=== PATIENT | female | born 1955 | race Caucasian/White ===

== ENCOUNTER 2019-01-08 10:36 | Inpatient (IN) | payer MEDICARE, MEDICAID ==
--- NOTE | 2018-12-26 14:46 | HP ---
PREOPERATIVE HISTORY AND PHYSICAL: DATE OF ADMISSION: 01/08/19 DATE OF OFFICE VISIT: 12/26/18 ATTENDING PHYSICIAN: Dr. Oriana Ivan.* (DICTATED BY TABITHA RAZO) PROCEDURE SCHEDULED: Left total hip arthroplasty. CHIEF COMPLAINT: Left hip pain. HISTORY OF PRESENT ILLNESS: Ms. Sepulveda is a 63-year-old female with over 2 years of increasingly severe left hip pain. She has pain in the left groin and has difficulty ambulating more than 1 block. She has pain with prolonged standing and uses a cane and rolling walker. She has tried anti-inflammatories , pain medications, and intraarticular hip injection without significant relief of her symptoms. She now elects to proceed with left total hip arthroplasty. PAST MEDICAL HISTORY: Significant for sleep apnea, hypertension, asthma, depression. She is oxygen dependent at night 2.5 L. PAST SURGICAL HISTORY: Appendectomy, tubal ligation, surgery for ovarian torsion. CURRENT MEDICATIONS: 1. Gabapentin 300 mg 1 p.o. 3 times daily. 2. Citalopram hydrobromide 20 mg p.o. twice daily. 3. Bupropion HCl 75 mg p.o. daily. 4. Metoprolol ER 50 mg p.o. daily. 5. Loratadine 10 mg p.o. daily. 6. Albuterol 2 puffs as needed for shortness of breath. 7. 81 mg aspirin p.o. daily. 8. Calcium with vitamin D 600/200 mg 1 p.o. b.i.d. 9. Cyclobenzaprine 10 mg p.o. t.i.d. as needed. 10. Multivitamin. 11. Nasal cannula O2 at 2.5 L at night. ALLERGIES: PENICILLIN, which caused swelling; MORPHINE, hives. FAMILY HISTORY: Father with a history of diabetes, stroke, and skin cancer as well as hypertension. Mother with a history of stroke. SOCIAL HISTORY: She is currently disabled. She quit smoking 3 years ago. She does not use alcohol. She denies use of illicit drugs. REVIEW OF SYSTEMS: The patient occasionally has shortness of breath on exertion and has had some issues with urinary leakage. She denies recent loss of consciousness, lightheadedness, dizziness, chest pain, palpitations, gastrointestinal or neurologic disorder. PHYSICAL EXAMINATION GENERAL: Well-developed, well-nourished 63-year-old female in no acute distress , alert and oriented x3, pleasant and cooperative. VITAL SIGNS: Height 5 feet 1 inch tall, weight 212 pounds. Pulse 72, respirations 12, BP 146/80. HEENT: PERRLA. EOMI. LUNGS: Clear to auscultation. No wheezes, rales, or rhonchi. HEART: Regular rate and rhythm. No murmur auscultated. ABDOMEN: Obese, soft, nontender, nondistended. Normoactive bowel sounds x4. MUSCULOSKELETAL: Left lower extremity: Her skin is intact. No abrasions or open lesions. 0 to 85 degrees of flexion with groin pain, 0 internal rotation, 20 degrees of external rotation with groin pain. She has active dorsiflexion of the left ankle. Her sensation and circulation are intact distally. DIAGNOSTIC STUDIES: Plain films of her left hip reveal medial [id number] contact with joint space narrowing and osteophyte formation. IMPRESSION: Advanced osteoarthritis of the left hip. PLAN: The patient has elected to proceed with left total hip arthroplasty scheduled with Dr. Ivan on 01/08/19. She is scheduled to report to the hospital today for preoperative testing. Risks and benefits of the procedure were fully discussed by Dr. Ivan at her office visit today, 12/26/18, and she elects to proceed. She will follow up postoperatively in roughly 10 to 14 days. TABITHA RAZO [id number]/[facility] #: [id number] MOY
[~2019-01-08 10:36] MED LIST: Acetaminophen IV 1GM/100ML * 1,000 MG/100 ML VIAL IVPB ONE; Dexamethasone IV* 4 MG/ML 1 ML (4 MG) IV SLOW PU ONE; Famotidine IV* 10 MG/ML 2 ML (20 mg) IV ONE; Gabapentin CAP(*) 300 MG PO ONE; Lactated Ringers 1000 ML Bag* 1,000 ML IV SCH; Levalbuterol 0.63MG/3ML NEB* UNIT OF USE INH ONE; Tranexamic Acid 1,000 MG in NS 0.9% 50 ML* (outpatient use) IV SCH; celeCOXIB CAP* 200 MG PO ONE
--- OUTSIDE RECORDS SUMMARY | 2019-01-08 10:39 | XMS REPORT | Continuity of Care Document ---
:1955 External Reference #:[id number] Author Name Oriana Ivan M.D. 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 Onset: 12/2018 region and thigh Sleep apnea Oriana Ivan M.D. Onset: 12/26/2018 Social History Type Date Description Comments Sex Unknown ETOH Use Denies alcohol use Tobacco Use Start: Unknown End: Patient is a former smoker Unknown Smoking Status Reviewed: 12/26/18 Patient is a former smoker Exercise Type/Frequency Does not exercise Allergies, Adverse Reactions, Alerts Active Allergies Reaction Severity Comments Date Penicillin 11/12/2018 Morphine 12/26/2018 Medications Active Medications SIG Qnty Indications Ordering Provider Date Gabapentin Take 1 Capsule Unknown 300mg Capsules By Mouth Three Times Daily Citalopram Hydrobromide Take 1 Tablet By Unknown 20mg Mouth twice Tablets Daily Bupropion HCL every day Anna, 75mg Tablets MD Trinh Metoprolol Succinate ER Galyanyasmany, 50mg MD Trinh Tablets ER 24HR Loratadine once daily Unknown 10mg Tablets Albuterol Sulfate 2 puffs every 4 Unknown hours as needed Aspirin 81 Low Dose 1 by mouth every Unknown 81mg day Chewtabs Calcium + D3 1 by mouth twice Unknown [id number] every day Tablets Cyclobenzaprine HCL take 1 tab by Unknown 10mg mouth 3 times a Tablets day as needed Multivitamin Adult Unknown Oxygen Unknown Immunizations Description No Information Available Vital Signs Date Vital Result Comment 12/26/2018 8:42am Height 61.5 inches 5'1.50" Weight 212.75 lb Heart Rate 72 /min BP Systolic 146 mmHg BP Diastolic 80 mmHg Respiratory Rate 12 /min Pain Level 7 BMI (Body Mass Index) 39.5 kg/m2 11/12/2018 10:41am Height 61.5 inches 5'1.50" Weight 211.00 lb BP Systolic 146 mmHg BP Diastolic 90 mmHg Body Temperature 97.7 F BMI (Body Mass Index) 39.2 kg/m2 Results Description No Information Available Procedures Description No Information Available Medical Devices Description No Information Available Encounters Type Date Location Provider Dx Diagnosis Office Visit 11/12/2018 [facility] Ori[facility] Ivan, M25.552 Pain in left hip 10:[facility] M16.12 Unilateral primary osteoarthritis, left hip Assessments Date Code Description Provider 12/26/2018 Carlo5.552 Pain in left hip Oriana Ivan M.D. 12/26/2018 M16.12 Unilateral primary osteoarthritis, left hip Oriana Ivan M.D. 11/12/2018 M25.552 Pain in left hip Oriana Ivan M.D. 11/12/2018 M16.12 Unilateral primary osteoarthritis, left hip Oriana Ivan M.D. Plan of Treatment Future Appointment(s):01/21/2019 1:45 pm - Oriana Ivan M.D. at [facility].[place]01/08/2019 3:45 pm - [facility]/26/2018 - Oriana Ivan M.D.M25.552 Pain in left hipFollow up:Follow up: 10-14 days post opM16.12 Unilateral primary osteoarthritis, left hip Functional Status Description No Information Available Mental Status Description No Information Available Referrals Description No Information Available
--- OUTSIDE RECORDS SUMMARY | 2019-01-08 10:39 | XMS REPORT | Summary of Care ---
:1955 Author Organization [facility] Address [address] [place] [address] Care Team Providers Name Role Phone Trinh Castillo MD Primary Care Provider Reason for Visit Reason Comments Surgery Approval LT hip replacement total, Dr ivan on 01/08/19 Encounter Details Date Type Department Care Team Description 12/19/2018 Office Visit [facility], Pre-op exam (Primary Practice MD Trinh Dx) [address] [place] [address] [place] [address] [phone] Allergies Active Allergy Reactions Severity Noted Date Comments Dilaudid (No Cough) Respiratory Reaction, GI Reaction 08/01/2011 Doxycycline Hyclate Respiratory Reaction, Swelling 08/18/2011 Penicillin G Potassium 06/08/2007 documented as of this encounter (statuses as of 12/19/2018) Medications Medication Sig Dispensed Refills Start Date End Date Status Aspirin 81 MG Oral Take 81 mg by 0 Active Tab mouth DAILY. albuterol HFA Take 2 Puffs by 3 Inhaler 1 09/05/2012 Active (VENTOLIN HFA) 108 inhalation (90 BASE) MCG/ACT EVERY FOUR Inhalation Aero Soln HOURS NEEDED (wheezing). Multiple TAKE ONE TABLET 90 Tab 1 12/23/2016 Active Vitamins-Iron BY MOUTH ONCE (DAILY-JASON/IRON/BET DAILY A-CAROTENE) Oral Tab buPROPion TAKE 1 TABLET 180 Tab 1 09/18/2018 Active (WELLBUTRIN) 75 MG BY MOUTH TWICE Oral Tab DAILY gabapentin TAKE 1 CAPSULE 270 Cap 1 09/18/2018 Active (NEURONTIN) 300 MG BY MOUTH THREE Oral Cap TIMES DAILY metoprolol succinate Take 1 Tab by 90 Tab 1 09/18/2018 Active (TOPROL XL) 50 MG mouth DAILY. Oral TABLET SR 24 HR Calcium Take 1 Tab by 180 Tab 1 09/18/2018 Active Carb-Cholecalciferol mouth TWICE (CALCIUM + D3) DAILY. 600-200 MG-UNIT Oral Tab cyclobenzaprine Take 1 Tab by 90 Tab 3 09/24/2018 Active (FLEXERIL) 10 MG mouth THREE Oral Tab TIMES DAILY NEEDED (muscle spasm). citalopram (CELEXA) TAKE 1 TABLET 90 Tab 1 10/17/2018 Active 20 MG Oral BY MOUTH ONCE TabIndications: DAILY Other depression loratadine (EQ Take 1 Tab by 90 Tab 1 12/18/2018 Active LORATADINE) 10 MG mouth DAILY. Oral Tab Oxycodone HCl 10 MG Take 1 Tab by 90 Tab 0 03/12/2018 Discontinued Oral TabIndications: mouth EVERY 9 Other chronic pain EIGHT HOURS NEEDED (pain). Max Daily Amount: 30 mg. 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 02/03/2016 Smoking 09/23/2014 BMI 33.0-33.9,adult 06/27/2013 COPD (chronic obstructive pulmonary disease) 10/13/2011 Overview: Oxygen 2L @ [facility] Depression 06/27/2011 Sciatica 03/14/2007 Low Back Pain 03/14/2007 Overview: narcotic dependent, disabled, WC Asthma 03/14/2007 Overview: smoker HTN (hypertension) Hyperlipidemia documented as of this encounter (statuses as of 12/19/2018) Resolved Problems Problem Noted Date Resolved Date Urethral caruncle 11/29/2013 2013 Smoking addiction 10/13/2011 01/18/2012 documented as of this encounter (statuses as of 12/19/2018) Immunizations Name Administration Dates Next Due Adacel TdaP 10/05/2006 Depo Medrol (40mg) 10/29/2009, 06/25/2009 Influenza (IM) Preservative Free 01/26/2018, 01/24/2017, 04/10/2014, 01/31/2013, 02/01/2012, 02/16/2011, 02/03/2010 Influenza (IM) W/Pres 01/26/2015 Influenza Vaccine Whole 03/04/2009, 02/18/2008, 03/14/2007, 02/22/2006, 02/13/2002 PNEUMOCOCCAL POLYSACCHARIDE VACCINE 07/30/2007 TDAP Vaccine 11/07/2017 dT Vaccine 05/08/1998 documented as of this encounter Social History Tobacco Use Types Packs/Day Years Used Date Former Smoker Cigarettes 0.5 30 Quit: 05/01/2016 Smokeless Tobacco: Never Used Alcohol Use Drinks/Week oz/Week Comments No 0 Standard drinks or equivalent 0.0 Sex Assigned at Date Recorded Not on file Job Start Date Occupation Industry Not on file Not on file Not on file Travel History Travel Start Travel End No recent travel history available. documented as of this encounter Last Filed Vital Signs Vital Sign Reading Time Taken Comments Blood Pressure 140/90 12/19/2018 2:28 PM EDT Pulse 82 12/19/2018 2:28 PM EDT Temperature 37 12/19/2018 2:28 PM EDT C (98.6 F) Respiratory Rate - - Oxygen Saturation 96% 12/19/2018 2:28 PM EDT Inhaled Oxygen Concentration - - Weight 95.9 kg (211 lb 8 oz) 12/19/2018 2:28 PM EDT Height 155.6 cm (5' 1.25") 12/19/2018 2:28 PM EDT Body Mass Index 39.64 12/19/2018 2:28 PM EDT documented in this encounter Progress Notes Trinh Castillo MD - 12/19/2018 2:20 PM EDT PATIENT: Nica Sepulveda : 1955 DATE OF SERVICE: 12/19/2018 Subjective SUBJECTIVE: Nica Sepulveda is a 62-y.o. female who presents to the office today for a preoperative consultation at the request of Dr. Ivan, who will perform a L Total hip replacement on 01/08/19. Patient complains of cardiac symptoms: none. Patient denies cardiac symptoms: chest pain, chest pressure/discomfort, dyspnea , palpitations, irregular heart beats, near-syncope. Past history of pulmonary embolism/deep vein thrombosis: no. There is a history of bleeding complications: no Past history of anesthetic problem: no. Exercise capacity: Can you walk 2 blocks on level ground, or carry 2 bags of groceries up 2 flights of stairs? No because of back and leg pain Count the number of risk factors in the revised Porter cardiac risk index. ( RCRI): High risk procedure: eg vascular surgery, any open intraperitoneal or intrathoracic History of ischemic heart disease (history of VT or a positive exercise test, current complaint of chest pain considered to be secondary to myocardial ischemia, use of nitrate therapy, or ECG with pathological Q waves; do not count prior coronary revascularization procedure unless one of the other criteria for ischemic heart disease is present) Hx of CHF, either systolic or diastolic History of cerebrovascular disease (TIA or Stroke) Diabetes mellitus requiring treatment with insulin Preoperative serum creatinine >2.0 mg/dl The risk of cardiac , nonfatal myocardial infarction, and nonfatal cardiac arrest according to the number of above risk predictors is estimated to be: No risk factors - 0.4 percent (95% CI: 0.1 - 0.8) Patient has history of sleep apnea. Currently not using CPAP: not able to tolerate facemask. 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 02/03/2016 Smoking 09/23/2014 BMI 33.0-33.9,adult 06/27/2013 COPD (chronic obstructive pulmonary disease) (HCC) 10/13/2011 O[facility] 2L [facility] Depression 06/27/2011 HTN (hypertension) Hyperlipidemia Sciatica 03/14/2007 Low Back Pain 03/14/2007 narcotic dependent, disabled, WC Asthma 03/14/2007 smoker Past Medical History: Diagnosis Date Asthma 03/14/2007 COPD (chronic obstructive pulmonary disease) (HCC) 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 Aspirin 81 MG Oral Tab Take 81 mg by mouth DAILY. buPROPion (WELLBUTRIN) 75 MG Oral Tab TAKE 1 TABLET BY MOUTH TWICE DAILY Calcium Carb-Cholecalciferol (CALCIUM + D3) 600-200 MG-UNIT Oral Tab Take 1 Tab by mouth TWICE DAILY. citalopram (CELEXA) 20 MG Oral Tab TAKE 1 TABLET BY MOUTH ONCE DAILY cyclobenzaprine (FLEXERIL) 10 MG Oral Tab Take 1 Tab by mouth THREE TIMES DAILY NEEDED (muscle spasm). gabapentin (NEURONTIN) 300 MG Oral Cap TAKE 1 CAPSULE BY MOUTH THREE TIMES DAILY loratadine (EQ LORATADINE) 10 MG Oral Tab Take 1 Tab by mouth DAILY. metoprolol succinate (TOPROL XL) 50 MG Oral TABLET SR 24 HR Take 1 Tab by mouth DAILY. Multiple Vitamins-Iron (DAILY-JASON/IRON/BETA-CAROTENE) Oral Tab TAKE ONE TABLET BY MOUTH ONCEDAILY No current facility-administered medications for this visit. Allergies Allergen Reactions Dilaudid (No Cough) Respiratory Reaction and GI Reaction Doxycycline Hyclate Respiratory Reaction and Swelling Penicillin [Penicillin G Potassium] Social History Socioeconomic History Marital status: Spouse name: Not on file Number of children: Not on file Years of education: Not on file Highest education level: Not on file Occupational History Not on file Social Needs Financial resource strain: Not on file Food insecurity: Worry: Not on file Inability: Not on file Transportation needs: Medical: Not on file Non-medical: Not on file Tobacco Use Smoking status: Former Smoker Packs/day: 0.50 Years: 30.00 Pack years: 15.00 Types: Cigarettes Last attempt to quit: 05/01/2016 Years since quittin.6 Smokeless tobacco: Never Used Substance and Sexual Activity Alcohol use: No Alcohol/week: 0.0 standard drinks Drug use: No Sexual activity: Never Partners: Male Lifestyle Physical activity: Days per week: Not on file Minutes per session: Not on file Stress: Not on file Relationships Social connections: Talks on phone: Not on file Gets together: Not on file Attends yarsani service: Not on file Active member of club or organization: Not on file Attends meetings of clubs or organizations: Not on file Relationship status: Not on file Intimate partner violence: Fear of current or ex partner: Not on file Emotionally abused: Not on file Physically abused: Not on file Forced sexual activity: Not on file Other Topics Concern Back Care Yes Bike Helmet No Blood Transfusions No Caffeine Concern No Exercise No Hobby Hazards No International Travel No Service No Occupational Exposure No Seat Belt No Self-Exams No Sleep Concern No Special Diet No Stress Concern No Weight Concern No Social History Narrative Patient is currently disabled due to her back, 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 Objective OBJECTIVE: BP 140/90 (BP Location: Left arm, Patient Position: Sitting) | Pulse 82 | Temp 98.6 F (37 C) | Ht 5' 1.25" (1.556 m) | Wt 211 lb 8 oz (95.9 kg) | SpO2 96% | BMI 39.64 kg/m GENERAL: alert, no distress. SKIN: normal. EYES: conjunctivae/corneas clear. Pupils equal, round, reactive to light. Equal ocular movements intact. MOUTH: moist mucous membranes, no lesions. LYMPH NODES: cervical, supraclavicular, and axillary nodes normal.. LUNGS: clear to auscultation bilaterally. HEART: regular rate and rhythm, S1, S2 normal, no murmur, click, rub or gallop. ABDOMEN: soft, non-tender. Bowel sounds normal. No masses, no organomegaly. FLANK TENDERNESS: absent. EXTREMITIES: no edema, redness or tenderness in the calves or thighs. NEUROLOGIC: Negative. EKG: unchanged from previous tracings, normal sinus rhythm. ASSESSMENT: No contraindications to planned surgery Plan PLAN: 1. Patient requires endocarditis prophylaxis: no. 2. Recommend perioperative beta-edward: Continue Metoprolol. 3. Patient requires perioperative deep vein thrombosis prophylaxis: As per protocol. 4. Air way precautions due to the history of sleep apnea 4. Proceed with surgery as planned. Author: Trinh Castillo MD 12/19/2018 14:46 documented in this encounter Plan of Treatment Name Type Priority Associated Diagnoses Order Schedule AMBULATORY 12 LEAD EKG EKG Routine Pre-op exam Ordered: 12/19/2018 (GLOBAL) Health Maintenance Due Date Last Done Comments ZOSTER IMMUNIZATION SERIES 2004 (1 of 2) MEDICARE ANNUAL WELLNESS 11/07/2018 11/07/2017, 04/12/2012, VISIT 02/16/2011 INFLUENZA VACCINE (#1) 2019 01/26/2018, 01/24/2017, 01/26/2015, Additional history exists DIABETES SCREENING 02/08/2019 02/08/2018, 01/24/2017, 11/30/2015, Additional history exists LIPID DISORDER SCREENING 02/08/2019 02/08/2018, 01/24/2017, 06/16/2015, Additional history exists DEPRESSION SCREENING 06/20/2019 06/20/2018, 06/20/2018 MAMMOGRAM (SCREENING) 2019 12/19/2018, 11/07/2017, 03/16/2016, Additional history exists PAP SMEAR 11/07/2020 11/07/2017, 06/27/2013, 04/12/2012 (Postponed), Additional history exists COLONOSCOPY SCREENING 02/16/2021 02/16/2011 (Declined) PNEUMOCOCCAL 0-64 YRS Completed 07/30/2007 HPV IMMUNIZATION SERIES Aged Out No longer eligible based on patient's age to complete this topic MENINGOCOCCAL VACCINE IMM Aged Out No longer eligible based on patient's age to complete this topic documented as of this encounter Goals Goal Patient Goal Associated Recent Patient-Stated? Author Type Problems Progress Blood Pressure Blood Pressure HTN 140/90 No Anna, < 140/90 (hypertension) (12/19/2018 Trinh, 2:28 PM EDT) Note: Hypertension Care Plan Based on the patient's clinical history and according to JNC 8 guidelines target blood pressure goal is less than 140/90. Based on the patient's last blood pressure of BP: 122/70 mmHg the patient is at at goal. As your provider, it is important that I advise you regarding: your current medications and help you with any challenges you may face taking your medications as directed (ex. instructions, cost, side effects, and interactions). Important lifestyle changes: weight reduction, dietary sodium reduction and smoking cessation your clinical goals and how you can achieve success: weight reduction, exercise plan and smoking cessation medication management: adjusted medications as appropriate patient education/self-management tools provided: Yes To successfully manage my Hypertension I will: monitor my blood pressure daily, understanding that my goal is less than 140/ 90 per my healthcare provider's recommendation. I will schedule an appointment with my provider if consistent abnormal readings greater than 160/100. take medications every day as prescribed by my healthcare provider and if unable to take them I will discuss with my provider. monitor for symptoms of chest pain, chest tightness/pressure, irregular heartbeat, persistent dizziness, radiating arm pain, and neck or jaw pain. If any of these symptoms are noticed I will seek medical attention immediately by calling 911 exercise/walk 30 minutes 5 day(s) per week. If I experience chest pain, chest tightness, or shortness of breath, I will seek medical attention immediately. follow a diet rich in fruits, vegetables, and low-fat dairy products with reduced content of saturated & total fat. I will reduce my sodium intake daily. An example is the DASH diet. To obtain more information please refer to the DASH Eating Plan listed in Educational Resources. record my blood pressure results. [employer] is safe and secure way for you to do this in your medical record online. try to obtain an ideal body weight. My recent weight was Weight: 215 lb ( 97.523 kg). My weight loss goal for my next office visit is 205. limit alcohol consumption. For men two drinks per day and women one drink per day. if currently smoking, will discuss how to quit smoking with my healthcare provider and work towards quitting. Educational Resources: National Heart, Lung, & Blood [place] http://nhlbi.nih.gov/hbp/index.html The DASH Diet Eating Plan http://www.nhlbi.nih.gov/health/health-topics/ topics/dash/ Academy of Nutrition & DIetetics http://eatright.org National Smoking Cessation Site http://smokefree.gov Blood Pressure < Blood Pressure 140/90 (12/19/2018 Trinh Tucker, 140/90 2:28 PM EDT) Note: This is an individualized treatment (blood pressure) goal for Nica Sepulveda : Displayed above (on the left) is your goal for blood pressure control. Your most recent blood pressure is also shown above, on the right. You should try to achieve blood pressures that are lower than your goal listed above (on the left). Smoking Cessation COPD Trinh Tucker MD Note: This is an individualized treatment (COPD) goal for Nica Sepulveda: Quit smoking immediately! Your provider has information and resources that may help you to quit. Depression screen Depression 22 (06/20/2018 2:06 PM Trinh Tucker, (PHQ-9) total score < 5 EST) Note: This is an individualized treatment (depression) goal for Nica Sepulveda: Displayed above is your goal for a depression screening (PHQ-9) score that would indicate good control of your depression. Lifestyle - Current Smoker Lifestyle Smoking Trinh Tucker MD Note: Smoking Cessation Plan Discussed smoking cessation with patient. Patient readiness to quit:no Discussed smoking cessation plan according to AHRQ guidelines:counseled patient on the risks of tobacco use and advised patient to quit and offered support My Quit Plan: My quit date is set for Notify my friends, family, and co-workers about decision to quit. Will ask for their support and understanding Remove tobacco products from my environment. I will ask people not to smoke around me or in my home. I will anticipate challenges at the beginning and will try not to be discouraged. To remember the benefits of quitting such as improved health, feeling better about myself, saving money, etc. Reducing stressors and avoiding triggers are essential keys to my success Finding ways to distract myself when I have the urge to smoke such as taking a walk, reading, playing a board game, putting together a puzzle, etc. Taking medications as my healthcare provider has advised to help alleviate the urge to smoke. If I am unable to take the medication, I will discuss further with my healthcare provider. Recognize reasons for relapse in my past attempts. What did and did not work for me Consider connecting with group, individual, or telephone counseling Lifestyle - Current Smoker Lifestyle Smoking Trinh Tucker MD Note: Smoking Cessation Plan Discussed smoking cessation with patient. Patient readiness to quit:no Discussed smoking cessation plan according to AHRQ guidelines:counseled patient on the risks of tobacco use and advised patient to quit and offered support My Quit Plan: My quit date is set for Notify my friends, family, and co-workers about decision to quit. Will ask for their support and understanding Remove tobacco products from my environment. I will ask people not to smoke around me or in my home. I will anticipate challenges at the beginning and will try not to be discouraged. To remember the benefits of quitting such as improved health, feeling better about myself, saving money, etc. Reducing stressors and avoiding triggers are essential keys to my success Finding ways to distract myself when I have the urge to smoke such as taking a walk, reading, playing a board game, putting together a puzzle, etc. Taking medications as my healthcare provider has advised to help alleviate the urge to smoke. If I am unable to take the medication, I will discuss further with my healthcare provider. Recognize reasons for relapse in my past attempts. What did and did not work for me Consider connecting with group, individual, or telephone counseling Weight loss vs. 18 mo Lifestyle 3.5 (12/19/2018 2:28 PM No Trinh Castillo MD max (lbs) >= 10 EDT) Note: This is an individualized lifestyle goal for Nica Sepulveda: Your body mass index (BMI) is more than 30. You should lose weight. A reasonable starting goal is to lose 10 pounds. Displayed above is how many pounds you have lost thus far towards your 10 pound weight loss goal. Keep a regular sleep schedule Lifestyle No Trinh Castillo MD Note: This is an individualized lifestyle goal for Nicadejan Sepulveda: Please maintain a regular sleep schedule. This may help with some symptoms of depression. Keep immunizations current Lifestyle Trinh Tucker MD Note: This is an individualized lifestyle goal for Nica M Sepulveda: Please be sure to keep up-to-date on recommended immunizations. For example, this would include a yearly influenza vaccine. Immunization status can be seen by looking at the Health Maintenance sections of your [facility], Plan of Care, and any After Visit Summaries. Take all prescribed medications as Self-management No Trinh Castillo MD directed Note: This is an individualized self-management goal for Nica Sepulveda: Please take all prescribed medications as directed. 1. Do not skip doses. If you cannot afford your medications, talk with your doctor. 2. Use a pill reminder system such as a pill box if needed. Your pharmacist can help you with this. 3. Contact your Pharmacy 5 days before your medication runs out. If you cannot take your medications for any reasons, talk with your doctor. 4. Please bring all of your medication bottles and inhalers (or a list of all your medications/inhalers) with you to every visit. Potential barriers to meeting all of your care plan goals will continue to be addressed on an ongoing basis. documented as of this encounter Results Not on filedocumented in this encounter Visit Diagnoses Diagnosis Pre-op exam - Primary Preoperative examination, unspecified documented in this encounter Insurance Payer Benefit Plan / Subscriber ID Effective Dates Phone Address Type Group MEDICARE MEDICARE PART A xxxxxxxxxxx 1997-Present Medicare & B MEDICAID [facility] xxxxxxxx 2016-Present Medicaid [place] documented as of this encounter
--- OUTSIDE RECORDS SUMMARY | 2019-01-08 10:39 | XMS REPORT | Continuity of Care Document ---
:1955 External Reference #:[id number] Author Name Oriana Ivan M.D. 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 Medicine Problems Active Problems Provider Date Localized, [...] + D3 1 by mouth twice Unknown [id number] every day Tablets Cyclobenzaprine HCL take 1 [...] BMI (Body Mass Index) 39.2 kg/m2 Results Test Date Facility Test Result H/L Range Note CBC Auto 12/26/2018 [facility] White Blood 6.6 10^3/uL Normal 3.5-10.[address] [place] [address] [phone] Red Blood Count 4.40 10^6/uL Normal 3.70-4.87 Hemoglobin 13.6 g/dL Normal 12.0-16.0 Hematocrit 40 % Normal 35-47 Mean Corpuscular Volume 92 fL Normal 80-97 Mean Corpuscular Hemoglobin 31 pg Normal 27-31 Mean Corpuscular HGB Conc 34 g/dL Normal 31-36 Red Cell Distribution Width 13 % Normal 10-15 Platelet Count 215 10^3/uL Normal 150-450 Mean Platelet Volume 8.3 fL Normal 7.4-10.4 Abs Neutrophils 4.0 10^3/uL Normal 1.5-7.7 Abs Lymphocytes 1.5 10^3/uL Normal 1.0-4.8 Abs Monocytes 0.7 10^3/uL Normal 0-0.8 Abs Eosinophils 0.4 10^3/uL Normal 0-0.6 Abs Basophils 0.0 10^3/uL Normal 0-0.2 Abs Nucleated RBC 0.0 10^3/uL Granulocyte % 60.3 % Lymphocyte % 23.0 % Monocyte % 10.8 % Eosinophil % 5.6 % Basophil % 0.3 % Nucleated Red Blood Cells % 0.0 Inr/Protime 12/26/2018 [facility] Inr 0.99 Normal 0.82-1.[address] [place], [place] [id number] [phone] Laboratory test 12/26/2018 [facility] Partial 35.8 Normal 26.0 -38.[address] [place] [address] Time PTT [phone] Type & Screen 12/26/2018 [facility] Patient O Positive [address] [place] [address] [phone] Antibody Screen NEGATIVE Comp Metabolic 12/26/2018 [facility] Sodium 142 mmol/L Normal 135-145 Panel [place] [address] [phone] Potassium 4.2 mmol/L Normal 3.5-5.0 Chloride 106 mmol/L Normal 101-111 Co2 Carbon Dioxide 33 mmol/L High 22-32 Anion Gap 3 mmol/L Normal 2-11 Glucose 88 mg/dL Normal 70-100 Blood Urea Nitrogen 17 mg/dL Normal 6-24 Creatinine 0.71 mg/dL Normal 0.51-0.95 BUN/Creatinine Ratio 23.9 High 8-20 Calcium 9.1 mg/dL Normal 8.6-10.3 Total Protein 7.1 g/dL Normal 6.4-8.9 Albumin 4.4 g/dL Normal 3.2-5.2 Globulin 2.7 g/dL Normal 2-4 Albumin/Globulin Ratio 1.6 Normal 1-3 Total Bilirubin 0.30 mg/dL Normal 0.2-1.0 Alkaline Phosphatase 87 U/L Normal 34-104 Alt 15 U/L Normal 7-52 Ast 18 U/L Normal 13-39 Egfr Non- 82.9 >60 Egfr 100.3 >60 2 Urinalysis Profile 12/26/2018 [facility] Urine Color Yellow [address] [place] [address] [phone] Urine Appearance Clear Urine Specific Rochelle 1.025 Normal 1.010-1.030 Urine pH 5.0 Normal 5-9 Urine Urobilinogen Negative Negative Urine Ketones Negative Negative Urine Protein 1+(30 mg/dL) Abnormal Negative Urine Leukocytes Trace Abnormal Negative Urine Blood Negative Negative * * Abnormal Negative 3 Urine Nitrite Negative Negative Urine Bilirubin Negative Negative Urine Glucose Negative Negative Urine White Blood Cell 1+(6-10/hpf) Abnormal Absent Urine Red Blood Cell 2+(6-10/hpf) Abnormal Absent Urine Bacteria Absent Absent Urine Squamous Epithelial Cell Present Abnormal Absent Urine Culture And 12/26/2018 [facility] Urine Culture SEE RESULT [address] [place], [place] [id number] [phone] 1 Standard intensity warfarin therapeutic range: 2.0-3.0 High intensity warfarin therapeutic range: 2.5-3.5 2 Because ethnic data is not always readily available, this report includes an eGFR for both -Americans and non- Americans. The National Kidney Disease Education Program (NKDEP) does not endorse the use of the MDRD equation for patients that are not between the ages of 18 and 70, are , have extremes of body size, muscle mass, or nutritional status, or are non- or non-. According to the National Kidney Foundation, irrespective of diagnosis, the stage of the disease is based on the level of kidney function: Stage Description GFR(mL/min/1.73 m(2)) 1 Kidney damage with normal or decreased GFR 90 2 Kidney damage with mild decrease in GFR 60-89 3 Moderate decrease in GFR 30-59 4 Severe decrease in GFR 15-29 5 Kidney failure <15 (or dialysis) 3 *Ascorbic acid is present which may interfere with detection of blood. 4 SEE RESULT BELOW Name: NICA KUMAR : [address]: Oriana Ivan MD Acct: [id number] Unit: [id number] AGE: 63 Location: [facility] Re12/26/18 SEX: F Status: REG REF SPEC: [id number] [place]: 12/26/18-11[address] [facility] [address]: Oriana Ivan MD REQ: [id number] RECD: 12/26/18 STATUS: COMP _ SOURCE: URINE SPDESC: ORDERED: Urine Culture QUERIES: Urine Source: Clean Catch Procedure Result Reported Site Urine Culture Final 12/27/18- 1408 ML No growth of clinically significant organisms * ML - Main Lab . END OF REPORT DEPARTMENT OF PATHOLOGY, [address] [place] [address] Ranjan Mcnair M.D. Director [facility] # [id number] Procedures Description No Information Available Medical Devices Description No Information Available Encounters Type Date Location Provider Dx Diagnosis Office Visit 11/12/2018 Orthopedic Oriana Ivan, M25.552 [facility] in [facility]12 Unilateral primary osteoarthritis, left hip Assessments Date Code Description Provider 12/26/2018 M25.552 Pain in left hip Oriana Ivan M.D. 12/26/2018 M16.12 Unilateral primary osteoarthritis, left hip Oriana Ivan M.D. 11/12/2018 M25.552 Pain in left hip Oriana Ivan M.D. 11/12/2018 M16.12 Unilateral primary osteoarthritis, left hip Oriana Ivan M.D. Plan of Treatment Future Appointment(s):01/08/2019 1:45 pm - [facility] 1:45 pm - [facility]21/2019 1:45 pm - [facility]/08/2019 1:45 pm - [facility]26[facility]2018 - Oriana Ivan M.D.M25.552 Pain in left hipFollow up:Follow up: 10-14 days post opM16.12 Unilateral primary osteoarthritis, left hip Functional Status Description No Information Available Mental Status Description No Information Available Referrals Description No Information Available
[2019-01-08] MEDS ORDERED: Gabapentin CAP(*) 300 MG ONE (11:05)
[2019-01-08] MEDS ORDERED: celeCOXIB CAP* 200 MG ONE (11:05)
[2019-01-08] MEDS ORDERED: Levalbuterol 0.63MG/3ML NEB* UNIT OF USE INH ONE (11:05)
[2019-01-08] MEDS ORDERED: Dexamethasone IV* 4 MG/ML 1 ML (4 MG) ONE (11:05)
[2019-01-08] MEDS ORDERED: Buffered Lidocaine 1% SYRIN* 1 ML/SYRINGE INTRADERM ONE (11:06)
[2019-01-08] MEDS ORDERED: Famotidine IV* 10 MG/ML 2 ML (20 mg) ONE (11:06)
[2019-01-08] MEDS ORDERED: Clindamycin 900 MG/D5W BAG(*) 900 MG/50 ML BAG IVPB ONE (11:06)
[2019-01-08] MEDS: Buffered Lidocaine 1% SYRIN* 1 ML/SYRINGE INTRADERM ONE ×2 (11:27→18:03)
[2019-01-08] MEDS ORDERED: Acetaminophen IV 1GM/100ML * 100 ML ONE (11:40)
[2019-01-08] MEDS ORDERED: Midazolam* 1 MG/ML 5 ML VIAL (5 MG) ONE (12:32)
[2019-01-08] MEDS ORDERED: KETAMINE HCL* 50 MG/ML 10 ML VIAL ONE (12:32)
[2019-01-08] MEDS ORDERED: Propofol* 10 MG/ML 20 ML BTL ONE ×3 (12:33→16:36)
[2019-01-08] MEDS ORDERED: Bupivacaine 0.5% SDV PF* 30ML VIAL ONE (12:33)
[2019-01-08] MEDS ORDERED: ROPIVACAINE 5 MG/ML 30 ML BTL (0.5%) ONE (13:30)
[2019-01-08] MEDS ORDERED: Ropivacaine (OR use only) 2 MG/ML 10 ML ONE (13:30)
[2019-01-08] MEDS ORDERED: Ondansetron INJ* 2 MG/ML VIAL IV PRN ×2 (14:54→16:59)
[2019-01-08] MEDS ORDERED: Naloxone* 0.4 MG/ML 1 ML VIAL IV PRN (14:54)
[2019-01-08] MEDS ORDERED: fentaNYL* 50 MCG/ML 2 ML VIAL (100 MCG VIAL) IV PRN (14:54)
[2019-01-08] MEDS ORDERED: DiMENhydriNATE IV* 50 MG/ML VIAL IV PUSH PRN (14:54)
[2019-01-08] MEDS ORDERED: Ketorolac INJ* 30 MG/ML 1 ML VIAL IV PRN (16:59)
[2019-01-08] MEDS ORDERED: oxyCODONE/Acetamin 5/325 MG* TAB PO PRN (16:59)
[2019-01-08] MEDS ORDERED: Ondansetron ODT TAB* 4 MG PO PRN (16:59)
[2019-01-08] MEDS ORDERED: Polyethylene Glycol 3350* 17 GM PACKET PO PRN (16:59)
[2019-01-08] MEDS ORDERED: diPHENhydraMINE IV* 50 MG/ML 1 ml VIAL (BENADRYL) IV PRN (16:59)
[2019-01-08] MEDS ORDERED: Morphine 4 MG/ML VIAL (1 ml) 4 MG/ML VIAL IV PRN (16:59)
[2019-01-08] MEDS ORDERED: diPHENhydraMINE PO* 25 MG PO PRN (16:59)
[2019-01-08] MEDS ORDERED: oxyCODONE TAB* 5 MG TAB PO PRN (16:59)
[2019-01-08] MEDS ORDERED: Magnesium Hydroxide LIQ* 30 ML UDC PO PRN (16:59)
[2019-01-08] MEDS ORDERED: Cyclobenzaprine TAB* 10 MG PO PRN (16:59)
[2019-01-08] MEDS ORDERED: Lactated Ringers 1000 ML Bag* 1,000 ML IV SCH (17:00)
[2019-01-08] MEDS ORDERED: Albuterol HFA INHALER* 8 gm MDI INH PRN (17:08)
[2019-01-08] MEDS ORDERED: Mometasone 110 MCG MDI INH PRN (17:08)
--- NOTE | 2019-01-08 17:28 | PN ---
Progress Note - Progress Note Date of Service: 01/08/19 Note: Pt seen and examined at bedside POD0 SP LTH. Denies CP, SOB, dizziness, nausea. Dressing CDI, DF/PF intact, DP2+, sensation intact to light touch distally. Hosp consulted for med mgmt of HTN, asthma.
--- NOTE | 2019-01-08 19:16 | OP ---
Operative Report - Blank - Operative Report Date of Operation: 01/08/19 Note: BERNABE KUMAR 1955 Date Of Surgery: 01/08/19 Oriana Ivan MD Unit Coordinator: Susan LU did help throughout the procedure with preparation of the hip, wound retraction, manipulation of the hip, and wound closure. Anesthesiologist: Lex Kaur MD Anesthesia Type: Spinal Preoperative Diagnosis: Left severe degenerative osteoarthritis of the hip Postoperative Diagnosis: As above Procedure Performed: Left Total Hip Arthroplasty Complications: None Specimen: Femoral head and acetabular reamings sent to pathology. Hardware used: This is uncemented Barbara total hip arthroplasty hardware for the femur a size 3 accolade II with 127 neck femoral component, for the acetabulum a size 50 D trident II tritanium cluster hole shell with 15 mm screw , for the insert a size 32 D polyethylene trident X3 insert, and for the femoral head a size 32 + 0 biolox delta V40 femoral head. Brief history/Indication: BERNABE KUMAR was known in clinic and had a history of severe left hip pain. She failed conservative treatment with anti- inflammatories, pain pills, intra-articular injections and physical therapy. She elected to undergo left total hip arthroplasty due to continued pain and decreased quality of life. Radiographs showed severe end stage osteoarthritis of the hip with bone on bone contact. Informed consent was obtained from the patient. She understood the risks of surgery included but were not limited to: bleeding, infection, damage to nearby structures, intraoperative fracture, nerve palsy, failure of the hardware, early loosening, stiffness or loss of motion, dislocation, leg length discrepancy, anesthesia complications, stroke, heart attack, blood clot and . She wished to proceed. Intra-Operative findings: Intraoperatively the patient was noted to have severe loss of cartilage of the acetabulum and femoral head. Description of the Procedure: BERNABE KUMAR was identified in the preanesthesia unit. Her left hip was marked as the correct operative side. Informed consent was signed and placed in the chart. The patient was taken to the operating room and placed under anesthesia without complication. A mcclain catheter was placed. The patient was placed on the peg board with all bony prominences well padded. The left lower extremity was prepped and draped in the usual sterile fashion. Preoperative time -out was made to correctly identify the patient, side and site. Appropriate intraoperative antibiotics were given within one hour of incision. A standard posterior incision was made and carried sharply down to the lateral fascia. A new 10 blade was used to make an incision in the fascia in line with the skin incision. A charnley retractor was placed. The piriformis and conjoined tendons were identified and elevated off the posterolateral femur using electrocautery. These were tagged with number 5 Ethibond. Next electrocautery was used to make a posterolateral capsular flap and this was tagged with number 5 Ethibonds. The hip was carefully dislocated. Lesser trochanter to the center of the femoral head was measured at 55 mm. The oscillating saw was used to make the femoral neck cut. The femoral head was carefully removed. The femur was retracted anteriorly and the acetabular retractors were placed. Long-handled knife was used to sharply remove any remaining labrum from the acetabular rim. The acetabulum was sequentially reamed up to a size 50. A bleeding subchondral bone bed was obtained. A trial liner was placed and had excellent fit and stability. A 50 D trident II tritanium cup with one 15mm screw was placed and had excellent stability with appropriate anteversion and abduction angle. A size 32D polyethylene liner was impacted into the acetabular shell. The liner was checked for stability and was stable. Next attention was turned to preparation of the femoral canal. A canal finder was used to enter the proximal femur. The femoral canal was sequentially broached up to a size 3 femoral broach trial. A trial neck and 32 +0 trial femoral head was chosen. Lesser trochanter to center of the femoral head measurement was satisfactory. The hip was reduced and taken through a range of motion. The hip was stable in all positions with good soft tissue tension and appropriate leg lengths. The hip was dislocated and all trials were removed. The final implant chosen was a accolade II size 3 with 127 degree neck. This stem was impacted into the femoral canal without difficulty. The stem was stable with appropriate anteversion. The femoral head chosen was a 32 + 0 ceramic head. The head was impacted onto the femoral neck without difficulty. The final lesser trochanter to center of the femoral head measurement was satisfactory. The hip was reduced and taken through a range of motion. The hip was stable in all positions with good soft tissue tension and appropriate leg lengths. The hip was copiously irrigated with sterile saline. The previously tagged capsule and tendons were repaired to the posterolateral femur through two trochanteric drill holes. The lateral fascia layer was closed using number 1 vicryls. The rest of the incision was closed in a layered fashion using 0 and 2-0 vicryls. The skin was closed using 3-0 monocryl suture and Dermabond. Sterile adaptic, 4x4s and paper tape was used to cover the incision. The patients anesthesia was reversed without difficulty. She was taken to the PACU in stable condition. Intended weight-bearing will be as tolerated with posterior hip precautions.
[2019-01-08] MEDS: traMADol TAB* 50 MG PO SCH (19:34)
--- NOTE | 2019-01-08 20:19 | CONS ---
CONSULTATION REPORT: DATE OF CONSULT: 01/08/19 SERVICE REQUESTING CONSULTATION: Orthopedic Surgery.* REASON FOR CONSULT: Surgical Co-management. SOURCE OF INFORMATION: History obtained from interview with the patient, her family, review of records from Dr. Ivan as well as Dr. Castillo. 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 She underwent a left total hip replacement today after failing conservative management, outpatient therapy for osteoarthritis without event. Seen by this author, she had no complaints. Pain was well controlled and she was eating chicken soup, smiling and quite interactive. PAST MEDICAL HISTORY: Includes: 1. Obstructive sleep apnea, not on CPAP because she cannot tolerate the mask. 2. Home oxygen at night, 2.5 L. 3. Asthma COPD overlap. 4. Smoking history. 5. Obesity. 6. Depression. 7. Hypertension. 8. Hyperlipidemia. 9. Sciatica. 10. Chronic lower back pain. 11. Peripheral vascular disease. PAST SURGICAL HISTORY: Includes appendectomy, tubal ligation, surgery for ovarian torsion. HOME MEDICATIONS: Include: 1. Gabapentin. 2. Citalopram. 3. Bupropion. 4. Metoprolol. 5. Loratadine. 6. Albuterol. 7. Aspirin. 8. Calcium with vitamin D. 9. Cyclobenzaprine. 10. Multivitamin. 11. Oxygen. ALLERGIES: To PENICILLIN which causes swelling and MORPHINE which causes hives. FAMILY HISTORY: History of diabetes, stroke, and skin cancer. Mother with a history of stroke. SOCIAL HISTORY: Quit smoking 3 years prior, smoked half a pack per day for 50 years. No current alcohol. PHYSICAL EXAM: Vitals: Blood pressure 136/69, heart rate 71, respiratory rate is 18, oxygen saturation was 97% on 3 L, T-max 92. Sitting up in bed interactive, pleasant, in no apparent distress. Regular rate and rhythm. Lungs are clear to auscultation bilaterally. No wheezes, rhonchi or rales. Her abdomen is soft, nontender and nondistended. Extremities are warm and well perfused. Her left hip is immobilized. She has 2+ peripheral pulses. Intact flexion and extension. She is alert and oriented x3. Cranial nerves II through XII are intact. DIAGNOSTIC STUDIES/LAB DATA: Pertinent data reviewed, no labs at this point. ASSESSMENT AND PLAN: This is a 63-year-old female postop left hip total hip replacement, now following for surgical comanagement. 1. History of sleep apnea and oxygen use at home. Monitor oxygen status closely. We will not initiate CPAP at this time. We would maintain oxygen overnight and while asleep. 2. Chronic obstructive pulmonary disease-asthma overlap, not on any controller medications, albuterol p.r.n. 3. Hypertension. Continue metoprolol. 4. Depression. Continue home medications including citalopram and bupropion. 5. Pain management per primary team. 6. DVT prophylaxis per primary team. Currently ordered for apixaban. [id number]/[facility] #: [id number] MTDD
[2019-01-08] MEDS ORDERED: OXYGEN BOTH NARES SCH (21:00)
[2019-01-08] MEDS: Docusate CAP* 100 MG PO SCH (22:05)
[2019-01-08] MEDS: Magnesium Hydroxide LIQ* 30 ML UDC PO SCH (22:05)
[2019-01-08] MEDS: Acetaminophen TAB* 325 MG PO SCH (22:05)
[2019-01-08] MEDS: Gabapentin CAP(*) 300 MG PO SCH (22:06)
[2019-01-08] MEDS: Clindamycin 600 MG IVPREMIX(* 600 MG/50 ML SDV IV SCH (22:21)
[2019-01-09] MEDS: traMADol TAB* 50 MG PO SCH ×3 (01:04→13:50)
[2019-01-09] MEDS: oxyCODONE/Acetamin 5/325 MG* TAB PO PRN ×3 (01:06→12:31)
[2019-01-09] MEDS: Clindamycin 600 MG IVPREMIX(* 600 MG/50 ML SDV IV SCH ×2 (05:38→13:46)
[2019-01-09] MEDS: Acetaminophen TAB* 325 MG PO SCH ×2 (05:41→12:31)
[2019-01-09 06:17] LABS: Hematocrit 28 % (35-47); Hemoglobin 9.3 g/dL (12.0-16.0); Mean Platelet Volume 8.4 fL (7.4-10.4); Platelet Count 181 10^3/uL (150-450)
[2019-01-09 06:31] LABS: Blood Urea Nitrogen 15 mg/dL (6-24); CO2 Carbon Dioxide 32 mmol/L (22-32); Chloride 105 mmol/L (101-111); EGFR African American 94.1 (>60); EGFR Non-African American 77.8 (>60); Glucose 169 mg/dL (70-100); Potassium 4.6 mmol/L (3.5-5.0); Sodium 137 mmol/L (135-145)
[2019-01-09] MEDS: Docusate CAP* 100 MG PO SCH (08:53)
[2019-01-09] MEDS: Gabapentin CAP(*) 300 MG PO SCH ×2 (08:54→13:46)
[2019-01-09] MEDS: Magnesium Hydroxide LIQ* 30 ML UDC PO SCH (08:54)
[2019-01-09] MEDS ORDERED: Apixaban* 2.5 MG TAB PO SCH (09:00)
[2019-01-09] MEDS ORDERED: Vitamin THERAPEUTIC TAB PO SCH (09:00)
[2019-01-09] MEDS ORDERED: buPROPion TAB* 75 MG PO SCH (09:00)
[2019-01-09] MEDS ORDERED: Metoprolol Succinate XL TAB* 50 MG PO SCH (09:00)
[2019-01-09] MEDS ORDERED: Citalopram TAB* 20 MG PO SCH (09:00)
--- NOTE | 2019-01-09 11:12 | PN ---
Progress Note - Progress Note Date of Service: 01/09/19 SOAP: Subjective: []Pt seen at bedside, she has no complaints today. L hip pain is well controlled. Denies CP, SOB, dizziness, nausea, abd pain. She tolerate breakfast well and is progressing towards goals with PT. Denies DC to home today. Objective: []Gen: Appears well, NAD LLE: Left hip dressing CDI, thigh is soft and nontender, df/pf intact, DP2+, sensation intact to light touch distally Calves supple and nontender without erythema, edema or palpable cords Assessment: []POD [address] Ivan Plan: []WBAT Posterior hip precautions PT/OT elevated HR x 1 now WNL, will monitor vitals Work with PT this afternoon, if goals met anticipate DC home. Will change dressing prior to DC Vital Signs Temp 97.6 F 01/09/19 07:54 Pulse 92 01/09/19 08:56 Resp 16 01/09/19 10:23 BP 125/65 01/09/19 07:54 Pulse Ox 95 01/09/19 08:00 Intake & Output 01/08/19 01/09/19 01/09/19 18:59 06:59 18:59 Intake Total 2100 4085 480 Output Total 400 1700 Balance 1700 2385 480 Weight 207 lb Intake: IV Fluids 2100 1045 ABX - CLINDAMYCIN 55 LR 2100 990 Oral 3040 480 Output: Urine 500 Moyer 400 1200 Laboratory Last Values Hgb 9.3 g/dL (12.0-16.0) L 01/09/19 05:34 Hct 28 % (35-47) L 01/09/19 05:34 Plt Count 181 10^3/uL (150-450) 01/09/19 05:34 MPV 8.4 fL (7.4-10.4) 01/09/19 05:34 Sodium 137 mmol/L (135-145) 01/09/19 05:34 Potassium 4.6 mmol/L (3.5-5.0) 01/09/19 05:34 Chloride 105 mmol/L (101-111) 01/09/19 05:34 Carbon Dioxide 32 mmol/L (22-32) 01/09/19 05:34 BUN 15 mg/dL (6-24) 01/09/19 05:34 Creatinine 0.75 mg/dL (0.51-0.95) 01/09/19 05:34 Est GFR ( Amer) 94.1 (>60) 01/09/19 05:34 Est GFR (Non-Af Amer) 77.8 (>60) 01/09/19 05:34 BUN/Creatinine Ratio 20.0 (8-20) 01/09/19 05:34 Glucose 169 mg/dL (70-100) H 01/09/19 05:34 Calcium 8.0 mg/dL (8.6-10.3) L 01/09/19 05:34
--- NOTE | 2019-01-09 11:21 | DS ---
Orthopedic Discharge Summary - Discharge Summary Date of Admission:01/08/19 Date of Discharge: 01/09/19 Date of Surgery: 01/08/19 Attending Orthopedic Provider: Dr Ivan Pre-operative Diagnosis: Left hip osteoarthritis Operative Procedure: left total hip replacement Disposition of Patient: home Condition of Patient: stable History: BERNABE KUMAR is a 63 year old F with years of increasingly severe left hip pain. Patient has failed conservative management and has elected to undergo a left total hip replacement Hospital Course: BERNABE was admitted to [facility] on 01/08/19. Patient underwent a left total hip replacement without complication followed by a brief recovery in PACU and transfer to the Short Stay Surgical Unit in stable condition. Our hospitalist service, physical therapy and occupational therapy also participated in this patients care. Post-op day 1: patient was alert and in no acute distress. Dressing was clean, dry and intact. Operative extremity dorsiflexion and plantarflexion intact, sensation intact to light touch distally , DP2+. Prior to discharge dressing was changed, incision was clean, dry and intact. Patient was deemed to be medically and orthopedically stable for discharge. Physical therapy goals were met. Home Medications Medication Instructions Recorded Confirmed Type Aspirin [Aspirin EC] 81 mg PO QAM 03/29/14 01/08/19 History Calcium Amino Acid Chelate 200 mg PO BID 03/29/14 01/08/19 History Cyclobenzaprine TAB* [Flexeril 10 10 mg PO TID 03/29/14 01/08/19 History MG TAB*] Multivitamin with Iron [Daily Carlton 1 mg PO QAM 03/29/14 01/08/19 History with Iron] Mometasone 110 MCG MDI * [Asmanex 1 puff INH DAILY PRN 06/02/15 01/08/19 History 110 MCG MDI *] Albuterol HFA INHALER* [Ventolin 2 puff INH Q4H PRN 04/27/18 01/08/19 History HFA Inhaler*] Citalopram TAB* [Celexa TAB*] 20 mg PO QAM 06/21/18 01/08/19 History LoraTADine TAB(NF) [Claritin 10 MG 10 mg PO QAM 12/26/18 01/08/19 History TAB(NF)] Metoprolol Succinate 50 mg PO QAM 12/26/18 01/08/19 History Oxygen 2.5 Liter 2.5 % BOTH NARES BEDTIME 12/26/18 01/08/19 History buPROPion TAB* [Wellbutrin TAB*] 75 mg PO QAM 12/26/18 01/08/19 History Gabapentin 300 mg PO TID 01/08/19 01/08/19 History Acetaminophen TAB* [Tylenol TAB*] 975 mg PO Q8H tab 01/09/19 Rx Apixaban* [Eliquis*] 2.5 mg PO BID #60 tab 01/09/19 Rx Docusate CAP* [Colace Cap*] 100 mg PO BID PRN #90 cap 01/09/19 Rx oxyCODONE/Acetamin 5/325 MG* 1 tab PO Q4H PRN tab MDD 10 01/09/19 Rx [Percocet 5/325 TAB*] oxyCODONE/Acetamin 5/325 MG* 2 tab PO Q4H PRN #70 tab MDD 10 01/09/19 Rx [Percocet 5/325 TAB*] Discharge Instructions following Orthopedic Surgery: Activity: * Weight Bearing as tolerated * Continue physical therapy and occupational therapy exercises as shown * Begin Outpatient PT Hip replacements: Continue Hip Precautions- do not cross legs or bend greater than 90 degrees/squat Wound care: * OK to shower on post-op day 3, no bathing, swimming, or submerging wound. * Use gentle soap, pat dry. Cover with gauze, DEVIN wrap or tape. Call Orthopedic office for: * Increased drainage * Redness * Increased pain * Fever Go to ER with shortness of breath or chest pain. Diet: * Regular diet * Increase fluids and fiber to prevent constipation. * Continue to use stool softeners, call office if no bowel motion within 48 hours. Medications See Home Medication List in your packet for medications that you should take after discharge. DVT Prophylaxis: Medication increases bleeding tendency Eliquis Dosin.5 mg, 1 tab every 12 hours x 30 days Pain Control: Percocet Dosin/325 mg 1-2 tabs by mouth every 4-6 hours as needed for pain. Maximum of 10 tabs per day. Hold for sedation, wean off as soon as pain allows Please note that Percocet contains Tylenol (acetaminophen). Maximum daily dose of Tylenol is 4000 mg from all sources. Antibiotics are required prior to any dental work. FOLLOW UP: Follow up with [Moncho] Within 10-14 days, call for appointment Please call our office with any questions or concerns ([phone]) RX to [facility]
[2019-01-09 16:30] VITALS: BP 114/65
[2019-01-09] MEDS ORDERED: Cetirizine* 10 MG TAB PO SCH (18:00)
[2019-01-10] MEDS ORDERED: Bisacodyl SUPP* 10 MG SUPP PR PRN (16:59)
== END 2019-01-09 16:50 | disposition home or self-care (01) | DRG 470 ==
LOC: AA 10:36 → SSU 18:15
PROVIDERS: ADMIT Orthopaedic Surgery Adult Reconstructive Orthopaedic Surgery; ATTEND Orthopaedic Surgery Adult Reconstructive Orthopaedic Surgery
PROC: 0SRB02A Replacement of Left Hip Joint with Metal on Polyethylene Synthetic Substitute, Uncemented, Open Approach (ICD-10-PCS; principal; 2019-01-08 13:45)
DX: M16.12 Unilateral primary osteoarthritis, left hip (principal); I10 Essential (primary) hypertension; Z99.81 Dependence on supplemental oxygen; J44.9 Chronic obstructive pulmonary disease, unspecified; G47.33 Obstructive sleep apnea (adult) (pediatric); E66.9 Obesity, unspecified; M54.40 Lumbago with sciatica, unspecified side; F32.9 Major depressive disorder, single episode, unspecified; I73.9 Peripheral vascular disease, unspecified; Z79.82 Long term (current) use of aspirin; Z79.51 Long term (current) use of inhaled steroids; Z79.899 Other long term (current) drug therapy; Z88.5 Allergy status to narcotic agent; Z88.0 Allergy status to penicillin; Z83.3 Family history of diabetes mellitus; Z82.3 Family history of stroke; Z82.49 Family history of ischemic heart disease and other diseases of the circulatory system; Z80.8 Family history of malignant neoplasm of other organs or systems; Z87.891 Personal history of nicotine dependence; Z68.38 Body mass index [BMI] 38.0-38.9, adult
CPT/HCPCS: 36415; 72170; 80048; 85014; 85018; 85049; 88304; 88311; A9270-GY; C1713; C1776; G8978-GP-CJ; G8979-GP-CI; G8987-GO-CJ; G8988-GO-CJ; G8989-GO-CJ; J1100; J2250; J2270; J2704; J2795; J3490

== ENCOUNTER 2019-08-20 13:53 | Emergency (ER) | payer MEDICARE, MEDICAID ==
[2019-08-20] MEDS ORDERED: Albuterol HFA INHALER* 8 gm MDI INH ONE (14:13)
--- NOTE | 2019-08-20 14:17 | ED ---
Respiratory - HPI Summary HPI Summary: This patient is a 63 y/o female, with hx of COPD, presenting to [facility] c/o cough since April 2019. Patient reports initially her cough was dry and nonproductive but since the last couple of weeks her cough has become productive with yellow sputum. Additionally notes she has shortness of breath and wheezing. Denies chest pain, fevers, nausea, vomiting, diarrhea, constipation. Patient reports she quit smoking. She does not use oxygen at home. Denies alcohol or drug use. Home Medications Medication Instructions Recorded Confirmed Type Aspirin [Aspirin EC] 81 mg PO DAILY 03/29/14 08/20/19 History Cyclobenzaprine TAB* [Flexeril 10 10 mg PO TID PRN 03/29/14 08/20/19 History MG TAB*] Multivitamin with Iron [Daily Carlton 1 mg PO DAILY 03/29/14 08/20/19 History with Iron] Citalopram TAB* [Celexa TAB*] 20 mg PO DAILY 06/21/18 08/20/19 History LoraTADine TAB(NF) [Claritin 10 MG 10 mg PO DAILY 12/26/18 08/20/19 History TAB(NF)] Metoprolol Succinate 50 mg PO DAILY 12/26/18 08/20/19 History buPROPion TAB* [Wellbutrin TAB*] 75 mg PO BID 12/26/18 08/20/19 History Calcium Carbonate/Vitamin D3 1 tab PO BID 06/06/19 08/20/19 History [Calcium 600+D High Potenc] Albuterol HFA INHALER* [Ventolin 2 puff INH Q4H PRN 08/20/19 08/20/19 History HFA Inhaler*] Gabapentin CAP(*) [Neurontin 300 300 mg PO TID 08/20/19 08/20/19 History CAP(*)] - History of Current Complaint Stated Complaint: COUGH Time Seen by Provider: 08/20/19 14:01 Hx Obtained From: Patient Onset/Duration: Lasting Weeks, Still Present Timing: Constant Character: Cough (Productive), Dyspnea at Rest Sputum Color: Yellow Aggravating Factor(s): Nothing Alleviating Factor(s): Nothing Associated Signs and Symptoms: SOB, Wheezing - Allergy/Home Medications Allergies/Adverse Reactions: Allergies Allergy/AdvReac Type Severity Reaction Status Date / Time doxycycline Allergy Severe Hives Verified 06/06/19 14:52 hydromorphone [From Dilaudid] Allergy Severe Anaphylatic Verified 06/06/19 14:52 Shock moxifloxacin Allergy Severe Hives Verified 06/06/19 14:52 Penicillins Allergy Severe Anaphylatic Verified 06/06/19 14:52 Shock Home Medications: Home Medications Aspirin [Aspirin EC] 81 mg PO DAILY 03/29/14 [History Confirmed 08/20/19] Cyclobenzaprine TAB* [Flexeril 10 MG TAB*] 10 mg PO TID PRN 03/29/14 [History Confirmed 08/20/19] Multivitamin with Iron [Daily Carlton with Iron] 1 mg PO DAILY 03/29/14 [History Confirmed 08/20/19] Citalopram TAB* [Celexa TAB*] 20 mg PO DAILY 06/21/18 [History Confirmed ] LoraTADine TAB(NF) [Claritin 10 MG TAB(NF)] 10 mg PO DAILY 12/26/18 [History Confirmed 08/20/19] Metoprolol Succinate 50 mg PO DAILY 12/26/18 [History Confirmed 08/20/19] buPROPion TAB* [Wellbutrin TAB*] 75 mg PO BID 12/26/18 [History Confirmed ] Calcium Carbonate/Vitamin D3 [Calcium 600+D High Potenc] 1 tab PO BID 06/06/19 [ History Confirmed 08/20/19] Albuterol HFA INHALER* [Ventolin HFA Inhaler*] 2 puff INH Q4H PRN 08/20/19 [ History Confirmed 08/20/19] Gabapentin CAP(*) [Neurontin 300 CAP(*)] 300 mg PO TID 08/20/19 [History Confirmed 08/20/19] PMH/Surg Hx/FS Hx/Imm Hx Endocrine/Hematology History: Reports: Hx Anemia Cardiovascular History: Reports: Hx Hypertension Respiratory History: Reports: Hx Asthma, Hx Chronic Obstructive Pulmonary Disease (COPD), Hx Pneumonia, Hx Seasonal Allergies, Hx Sleep Apnea, Other Respiratory Problems/Disorders - O2 at home, no CPAP, was taken away d/t noncompliance (claustroph.) GI History: Reports: Hx Ulcer Musculoskeletal History: Reports: Hx Arthritis, Hx Back Problems, Hx Tendonitis Sensory History: Reports: Hx Contacts or Glasses Denies: Hx Hearing Aid Opthamlomology History: Reports: Hx Contacts or Glasses Neurological History: Reports: Hx Headaches, Hx Migraine, Hx Spinal Cord Injury Psychiatric History: Reports: Hx Depression - since passed - Cancer History Hx Chemotherapy: No - Surgical History Surgical History: Yes Surgery Procedure, Year, and Place: tubal ligation 1976. biopsy 2013. ovary surgery. hip replacement 2019 Hx Anesthesia Reactions: No Infectious Disease History: Reports: Hx Hepatitis - C, treated Denies: Hx of Known/Suspected MRSA, History Other Infectious Disease - Family History Known Family History: Negative: Cardiac Disease, Hypertension, Diabetes, Renal Disease, Respiratory Disease, Seizure Disorder, Blood Disorder - Social History Alcohol Use: None Substance Use Type: Reports: None Substance Use Comment - Amount & Last Used: for sleep Smoking Status (MU): Smoker, Current Status Unknown Type: eCigarettes Amount Used/How Often: 1/2 ppd Have You Smoked in the Last Year: Yes Review of Systems Negative: Fever Negative: Chest Pain Respiratory: Other - POSITIVE: wheezing Positive: Shortness Of Breath, Cough Negative: Vomiting, Diarrhea, Nausea, Other - NEGATIVE: constipation All Other Systems Reviewed And Are Negative: Yes Physical Exam - Summary Physical Exam Summary: VITAL SIGNS: Reviewed. GENERAL: Patient is a well-developed and nourished female who is lying comfortable in the stretcher. Patient is not in any acute respiratory distress. HEAD AND FACE: No signs of trauma. No ecchymosis, hematomas or skull depressions. No sinus tenderness. EYES: PERRLA, EOMI x 2, No injected conjunctiva, no nystagmus. EARS: Hearing grossly intact. Ear canals and tympanic membranes are within normal limits. MOUTH: Oropharynx within normal limits. NECK: Supple, trachea is midline, no adenopathy, no JVD, no carotid bruit, no c- spine tenderness, neck with full ROM. CHEST: Symmetric, no tenderness at palpation LUNGS: Coarse breath sounds bilaterally and some wheezing bilaterally. CVS: Regular rate and rhythm, S1 and S2 present, no murmurs or gallops appreciated. ABDOMEN: Soft, non-tender. No signs of distention. No rebound no guarding, and no masses palpated. Bowel sounds are normal. EXTREMITIES: FROM in all major joints, no edema, no cyanosis or clubbing. NEURO: Alert and oriented x 3. No acute neurological deficits. Speech is normal and follows commands. SKIN: Dry and warm Triage Information Reviewed: Yes Vital Signs On Initial Exam: Initial Vitals Temp Pulse Resp BP Pulse Ox 98.8 F 113 20 151/93 94 08/20/19 15:02 08/20/19 15:02 08/20/19 15:02 08/20/19 15:02 08/20/19 15:02 Vital Signs Reviewed: Yes Procedures - Sedation Patient Received Moderate/Deep Sedation with Procedure: No Diagnostics - Laboratory Result Diagrams: 08/20/19 14:40 08/20/19 14:40 Lab Statement: Any lab studies that have been ordered have been reviewed, and results considered in the medical decision making process. - Radiology Chest XR Radiology Interpretation Completed By: Radiologist Summary of Radiographic Findings: IMPRESSION: No active cardiopulmonary disease is noted. Dr. Sanz has reviewed this report. - EKG 1446 Cardiac Rate: Tachycardia - at 116 bpm EKG Rhythm: Sinus Tachycardia Summary of EKG Findings: EKG at 1446 shows sinus tachycardia at a rate of [address] elevations. This EKG was intrepreted and reviewed by ED physician. Disposition - Course Assessment/Plan: This patient is a 63 y/o female, with hx of COPD, presenting to [facility] c/o cough since April 2019. Patient reports initially her cough was dry and nonproductive but since the last couple of weeks her cough has become productive with yellow sputum. Additionally notes she has shortness of breath and wheezing. Denies chest pain, fevers, nausea, vomiting, diarrhea, constipation. Patient reports she quit smoking. She does not use oxygen at home. Denies alcohol or drug use. In the ED course the patient was placed in a hall monitor, IV access was obtained. She was given Albuterol MDI 2 puffs for her wheezing. Past medical records reviewed. EKG after the albuterol shows sinus tachycardia. Blood test w/o a significant abnormality except for carbon dioxide of 33 and glucose 129. Chest x-ray shows no acute pathology. After the patient was given albuterol MDI the patients symptoms improved. I discussed all the findings and test results with the patient. Patient was instructed to return to the emergency room immediately if any of the symptoms returns or worsens. Plan of care was discussed with the patient and understands and agrees. All questions were answered at patient satisfaction. There were no further complaints or concerns. Lung exam before discharge: CTA B/L. Good air exchange. No wheezing or crackles heard. CVS: S1 and S2 present. No murmurs appreciated. Patient is alert and oriented x 3. Patient is hemodynamically stable. Patient will be discharged home with follow up from her PCP in the next 2-3 days. - Diagnoses Provider Diagnoses: COPD (chronic obstructive pulmonary disease) - Critical Care Time Critical Care Statement: Critical care time is provided exclusive of any time spent performing procedures. Discharge ED - Sign-Out/Discharge Documenting (check all that apply): Patient Departure - Discharge home - Discharge Plan Condition: Stable Disposition: HOME Patient Education Materials: COPD (Chronic Obstructive Pulmonary Disease) (ED) Referrals: Trinh Castillo MD [Primary Care Provider] - Additional Instructions: FOLLOW UP WITH YOUR PRIMARY CARE PROVIDER IN 2-3 DAYS. RETURN TO THE EMERGENCY DEPARTMENT FOR ANY WORSENING OR NEW SYMPTOMS. - Billing Disposition and Condition Condition: STABLE Disposition: Home - Attestation Statements Document Initiated by Scribe: Yes Documenting Scribe: Umu Ballard Provider For Whom Darryl is Documenting (Include Credential): Augusto Sanz MD Scribe Attestation: Umu Mishra scribed for Augusto Sanz MD on 08/21/19 at 1226. Scribe Documentation Reviewed: Yes Provider Attestation: The documentation as recorded by the Umu swain accurately reflects the service I personally performed and the decisions made by Augusto walton MD Status of Scribe Document: Viewed
--- OUTSIDE RECORDS SUMMARY | 2019-08-20 14:32 | XMS REPORT | Summary of Care ---
:1955 Author Organization [facility] Address [address] [place] [address] Care Team Providers Name Role Phone Trinh Castillo Primary Care Provider Reason for Visit Reason Comments Cough Breathing Problem Encounter Details Date Type Department Care Team Description 08/19/2019 Office Visit [place] [facility] Productive cough (Primary Dx); Practice MD Trinh SOB (shortness of breath) [address] [facility] [address] [place], [place] [id number] [place] [id number] [phone] Allergies Active Allergy Reactions Severity Noted Date Comments Dilaudid (No Cough) Respiratory Reaction, GI Reaction 08/01/2011 Doxycycline Hyclate Respiratory Reaction, Swelling 08/18/2011 Penicillin G Potassium 06/08/2007 documented as of this encounter (statuses as of 08/19/2019) Medications Medication Sig Dispensed Refills Start Date End Date Status Aspirin 81 MG Oral Tab Take 81 mg by 0 Active mouth DAILY. albuterol HFA (VENTOLIN Take 2 Puffs by 3 Inhaler 1 09/05/2012 Active HFA) 108 (90 BASE) inhalation EVERY MCG/ACT Inhalation Aero FOUR HOURS Soln NEEDED (wheezing). Multiple Vitamins-Iron TAKE ONE TABLET 90 Tab 1 12/23/2016 Active (DAILY-JASON/IRON/BETA-C BY MOUTH ONCE [place]) Oral Tab DAILY buPROPion (WELLBUTRIN) TAKE 1 TABLET BY 180 Tab 1 04/29/2019 Active 75 MG Oral Tab MOUTH TWICE DAILY metoprolol succinate TAKE 1 TABLET BY 90 Tab 1 04/29/2019 Active (TOPROL XL) 50 MG Oral MOUTH ONCE DAILY TABLET SR 24 HR citalopram (CELEXA) 20 TAKE 1 TABLET BY 90 Tab 1 04/29/2019 Active MG Oral TabIndications: MOUTH ONCE DAILY Other depression gabapentin (NEURONTIN) TAKE 1 CAPSULE BY 270 Cap 1 04/29/2019 Active 300 MG Oral Cap MOUTH THREE TIMES DAILY cyclobenzaprine Take 1 Tab by 60 Tab 1 05/10/2019 Active (FLEXERIL) 10 MG Oral mouth THREE TIMES Tab DAILY NEEDED (muscle spasms). loratadine TAKE 1 TABLET BY 90 Tab 1 06/21/2019 Active (CLARITIN,ALAVERT) 10 MOUTH ONCE DAILY MG Oral Tab Calcium Take 1 Tab by 180 Tab 1 08/07/2019 Active Carb-Cholecalciferol mouth TWICE (CALCIUM + D3) 600-200 DAILY. 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 02/03/2016 Smoking 09/23/2014 BMI 33.0-33.9,adult 06/27/2013 COPD (chronic obstructive pulmonary disease) 10/13/2011 Overview: Oxygen 2L @ [facility] [place] Depression 06/27/2011 Sciatica 03/14/2007 Low Back Pain 03/14/2007 Overview: narcotic dependent, disabled, WC Asthma 03/14/2007 Overview: smoker HTN (hypertension) Hyperlipidemia documented as of this encounter (statuses as of 08/19/2019) Resolved Problems Problem Noted Date Resolved Date Urethral caruncle 11/29/2013 2013 Smoking addiction 10/13/2011 01/18/2012 documented as of this encounter (statuses as of 08/19/2019) Immunizations Name Administration Dates Next Due Adacel TdaP 10/05/2006 Influenza (IM) Preservative Free 01/26/2018, 01/24/2017, 04/10/2014, [...] Assigned at Date Recorded Not on file documented as of this encounter Last Filed Vital Signs Not on filedocumented in this encounter Patient Instructions Patient InstructionsTrinh Castillo MD - 08/19/2019 2:20 PM EDT1. Advised to go to the ERElectronically signed by Trinh Castillo MD at 2:29 PM EDT documented in this encounter Progress Notes Trinh Castillo MD - 08/19/2019 2:20 PM EDT Patient: Nica Sepulveda Date of Service: 08/19/2019 In our efforts to minimize the spread of COVID-19 in our community, amongst our patients, healthcarestaff and providers, we have implemented virtual visits with our patients. No vital signs, physical exam or in-office diagnostics were completed during this visit. These items may be accomplished during subsequent visits. Subjective: Nica Sepulveda is a 63-y.o. female who presents for Chief Complaint Patient presents with ? Cough ? Breathing Problem Patient with history of COPD. Started to have congestion, productive cough about 3 weeks ago. Also - using O 2 during the day. Usually uses it only at night Complains of increasing SOB/wheezing, especially at night. Past Medical History: Diagnosis Date ? Asthma 03/14/2007 ? COPD (chronic obstructive pulmonary disease) (HCC) ? 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 Hepatitis C Genotype 1a ? HTN (hypertension) ? Hyperlipidemia ? Illiterate Per Pt ? Low Back Pain 03/14/2007 narcotic dependent, disabled, WC ? Osteoarthritis ? Sciatica 03/14/2007 Outpatient Medications as of 08/19/2019 Medication Sig Dispense Refill ? albuterol HFA (VENTOLIN HFA) 108 (90 BASE) MCG/ACT Inhalation Aero Soln Take 2 Puffs by inhalation EVERY FOUR HOURS NEEDED (wheezing). 3 Inhaler 1 ? Aspirin 81 MG Oral Tab Take 81 mg by mouth DAILY. ? buPROPion (WELLBUTRIN) 75 MG Oral Tab TAKE 1 TABLET BY MOUTH TWICE DAILY 180 Tab 1 ? Calcium Carb-Cholecalciferol (CALCIUM + D3) 600-200 MG-UNIT Oral Tab Take 1 Tab by mouth TWICE DAILY. 180 Tab 1 ? citalopram (CELEXA) 20 MG Oral Tab TAKE 1 TABLET BY MOUTH ONCE DAILY 90 Tab 1 ? cyclobenzaprine (FLEXERIL) 10 MG Oral Tab Take 1 Tab by mouth THREE TIMES DAILY NEEDED (muscle spasms). 60 Tab 1 ? gabapentin (NEURONTIN) 300 MG Oral Cap TAKE 1 CAPSULE BY MOUTH THREE TIMES DAILY 270 Cap 1 ? loratadine (CLARITIN,ALAVERT) 10 MG Oral Tab TAKE 1 TABLET BY MOUTH ONCE DAILY 90 Tab 1 ? metoprolol succinate (TOPROL XL) 50 MG Oral TABLET SR 24 HR TAKE 1 TABLET BY MOUTH ONCE DAILY 90 Tab 1 ? Multiple Vitamins-Iron (DAILY-JASON/IRON/BETA-CAROTENE) Oral Tab TAKE ONE TABLET BY MOUTH ONCE DAILY 90 Tab 1 No current facility-administered medications on file as of 08/19/2019. Allergies Allergen Reactions ? Dilaudid (No Cough) Respiratory Reaction and GI Reaction ? Doxycycline Hyclate Respiratory Reaction and Swelling ? Penicillin [Penicillin G Potassium] Review of Systems: All remaining review of systems was negative. Objective: <Not on file> General appearance: alert, fatigued ICD-9-CM ICD-10-CM 1. Productive cough 786.2 R05 2. SOB (shortness of breath) 786.05 R06.02 Patient was strongly advised to be evaluated at the ER. Patient Instructions 1. Advised to go to the ER Author: Trinh Castillo MD documented in this encounter Plan of Treatment Health Maintenance Due Date Last Done Comments CT Colonography 1955 Cologuard 1955 Colonoscopy 1955 Colorectal Cancer Screening 1955 FIT/FOBT 1955 Sigmoidoscopy 1955 ZOSTER IMMUNIZATION SERIES 2004 (1 of 2) MEDICARE ANNUAL WELLNESS 11/07/2018 11/07/2017, 04/12/2012, VISIT 02/16/2011 DIABETES SCREENING 02/08/2019 02/08/2018, 01/24/2017, 11/30/2015, Additional history exists LIPID DISORDER SCREENING 02/08/2019 02/08/2018, 01/24/2017, 06/16/2015, Additional history exists DEPRESSION SCREENING 06/20/2019 06/20/2018, 06/20/2018 MAMMOGRAM (SCREENING) 2019 12/19/2018, 11/07/2017, 03/16/2016, Additional history exists INFLUENZA VACCINE (Season 01/07/2020 01/26/2018, 01/24/2017, Ended) 01/26/2015, Additional history exists PAP SMEAR 11/07/2020 11/07/2017, 06/27/2013, 04/12/2012 (Postponed), Additional history exists DTaP/Tdap/Td Vaccines (3 - 11/08/2027 11/07/2017, 05/08/1998 Tdap) PNEUMOCOCCAL 0-64 YRS Completed 07/30/2007 HEPATITIS A IMMUNIZATION Aged Out No longer eligible SERIES based on patient's age to complete this topic HPV IMMUNIZATION SERIES Aged Out No longer [...] Educational Resources. record my blood pressure results. Zero[employer] is safe and secure way for you [...] Educational Resources: National Heart, Lung, & Blood [place] http://nhlbi.nih.gov/hbp/index.html The DASH Diet Eating Plan http://www.nhlbi.nih.gov/health/health-topics/ [...] Depression screen Depression 22 (06/20/2018 2:06 PM No Trinh Castillo, (PHQ-9) total score < 5 EST) Note: [...] an individualized lifestyle goal for Nica Sepulveda: Please maintain a regular sleep schedule. This may help with some symptoms of depression. Keep immunizations current Lifestyle No Trinh Castillo MD Note: This is an individualized lifestyle goal for Nica Sepulveda: Please be sure to keep up-to-date [...] filedocumented in this encounter Visit Diagnoses Diagnosis Productive cough Cough SOB (shortness of breath) Shortness of breath documented in this encounter Insurance Payer Benefit Plan / Subscriber ID Effective Dates Phone Address Type Group MEDICARE MEDICARE PART A [id number] 1997-Present Medicare & B MEDICAID [facility] [id number] 2016-Present Medicaid [place]ID (Work) documented as of this encounter
[2019-08-20 15:06] LABS: ABS Eosinophils 0.3 10^3/ul (0-0.6); ABS Lymphocytes 1.5 10^3/ul (1.0-4.8); ABS Monocytes 0.7 10^3/ul (0-0.8); ABS Neutrophils 5.3 10^3/ul (1.5-7.7); Eosinophil % 3.7 %; Hematocrit 41 % (35-47); Hemoglobin 13.6 g/dL (12.0-16.0); Lymphocyte % 19.3 %; Mean Corpuscular HGB Conc 34 g/dL (31-36); Mean Corpuscular Hemoglobin 31 pg (27-31); Mean Corpuscular Volume 93 fL (80-97); Mean Platelet Volume 7.9 fL (7.4-10.4); Platelet Count 268 10^3/uL (150-450); Red Blood Count 4.35 10^6 /uL (3.70-4.87); Red Cell Distribution Width 13 % (10-15); White Blood Count 7.8 10^3/uL (3.5-10.8)
[2019-08-20 15:25] LABS: Albumin 4.1 g/dL (3.2-5.2); Albumin/Globulin Ratio 1.2 (1-3); BUN/Creatinine Ratio 15.5 (8-20); C Reactive Protein 7.27 mg/L (<8.01); Calcium 9.1 mg/dL (8.6-10.3); EGFR African American 82.6 (>60); EGFR Non-African American 68.3 (>60); Globulin 3.4 g/dL (2-4); Potassium 3.7 mmol/L (3.5-5.0); Total Bilirubin 0.3 mg/dL (0.2-1.0); Total Protein 7.5 g/dL (6.4-8.9)
[2019-08-20 15:28] LABS: CKMB ng/mL 1.9 ng/mL (0.6-6.3)
[2019-08-20 17:21] VITALS: BP 138/72
== END 2019-08-20 16:35 | disposition home or self-care (01) ==
LOC: ED 13:53
DX: J44.9 Chronic obstructive pulmonary disease, unspecified (principal); R06.02 Shortness of breath; I10 Essential (primary) hypertension; Z72.0 Tobacco use; R51 Headache; Z96.649 Presence of unspecified artificial hip joint; Z98.51 Tubal ligation status; Z86.19 Personal history of other infectious and parasitic diseases; R94.31 Abnormal electrocardiogram [ECG] [EKG]; Z79.899 Other long term (current) drug therapy
CPT/HCPCS: 36415; 71045; 80053; 82550; 82553; 83605; 83880; 84484; 85025; 86140; 87040; 93005; 99282; A9270-GY